=== PATIENT | male | born 1945 | race Caucasian/White ===

== ENCOUNTER 2019-01-17 10:14 | Emergency (ER) | payer MEDICARE, OTHER ==
[~2019-01-17] VITALS: Ht 175.3 cm; Wt 81.8 kg
[2019-01-17] MEDS ORDERED: LOSA50TA64 PO (10:32)
[2019-01-17] MEDS ORDERED: MORPHINE SULFATE 4 MG/ML SYRINGE IVP ONE (10:45)
[2019-01-17] MEDS ORDERED: PERTUSS(ACELL),DIPH,TET VAC/PF 0.5 ML VIAL IM ONE (10:45)
[2019-01-17] MEDS ORDERED: CeFAZolin 1 GM/DEXTROSE 50 ML IV ONE (10:45)
[2019-01-17] MEDS ORDERED: ONDANSETRON HCL 4 MG/2 ML VIAL IVP ONE (10:45)
[2019-01-17 11:16] LABS: BASOPHILS % (AUTO) 0.5 % (0.0-2.0); EOSINOPHILS % (AUTO) 0.4 % (1.0-6.0); HEMATOCRIT 43.1 % (41-53); HEMOGLOBIN 14.9 g/dL (13.5-17.5); LYMPHOCYTES % (AUTO) 13.6 % (22.0-44.0); MEAN CORPUSCULAR HEMOGLOBIN 31.1 pg (26.0-34.0); MEAN CORPUSCULAR HGB CONC 34.5 G/dL (31.0-37.0); MEAN CORPUSCULAR VOLUME 90 fL (80-100); MONOCYTES # (AUTO) 0.5 K/uL (0.1-1.0); MONOCYTES % (AUTO) 6.7 % (2.0-9.0); NEUTROPHILS # (AUTO) 5.6 K/uL (1.8-7.7); NEUTROPHILS % (AUTO) 78.8 % (40.0-70.0); PLATELET COUNT (AUTO) 185 K/uL (150-450); RED BLOOD CELL COUNT(AUTO) 4.78 MIL/uL (4.50-5.90); RED CELL DISTRIBUTION WIDTH 12.9 % (11.5-14.5)
[2019-01-17 11:26] LABS: ANION GAP 9 mmol/L (8-16); CALCIUM, TOTAL 8.8 mg/dL (8.8-10.5); CARBON DIOXIDE 26 mmol/L (22-29); CHLORIDE 106 mmol/L (98-107); CREATININE 1.05 mg/dL (0.60-1.30); GLOMERULAR FILTR. RATE CALC > 60 mL/min (>60); GLUCOSE,RANDOM 109 mg/dL (70-110); POTASSIUM 4.4 mmol/L (3.5-5.1); SODIUM SERUM 141 mmol/L (136-145); UREA NITROGEN, BLOOD 18 mg/dL (7-18)
[2019-01-17 11:30] LABS: PROTHROMBIN TIME 10.5 SEC (9.4-11.6)
[2019-01-17] MEDS ORDERED: LIDOCAINE 1% 10 ML VIAL INJ ONE (12:15)
[2019-01-17] MEDS ORDERED: GENTAMICIN 80 MG/NACL ISO-OSM 50 ML IV ONE (12:15)
[2019-01-17] MEDS ORDERED: HYDROCODONE/ACETAMINOPHEN 5-325 MG TABLET PO ONE (13:30)
[2019-01-17] MEDS ORDERED: BACITRACIN 0.9 GM PACKET OINTMENT TP ONE (13:30)
[2019-01-17] MEDS ORDERED: MORPHINE SULFATE 2 MG/ML SYRINGE IVP ONE (14:00)
[2019-01-17 14:54] VITALS: BP 139/75
== END 2019-01-17 15:06 | disposition home or self-care (01) ==
LOC: EMS 10:16
DX: S68.114A Complete traumatic metacarpophalangeal amputation of right ring finger, initial encounter (principal); I10 Essential (primary) hypertension; Z79.899 Other long term (current) drug therapy; W26.8XXA Contact with other sharp object(s), not elsewhere classified, initial encounter; Y93.89 Activity, other specified; Y92.89 Other specified places as the place of occurrence of the external cause; Y99.8 Other external cause status
CPT/HCPCS: 12002; 36415; 73140; 80048; 85025; 85610; 85730; 86850; 86900; 86901; 90471; 90715; 96365; 96367; 96375; 96376; 99284; J0690; J1580; J2270 ×2; J2405; J3490

== ENCOUNTER 2019-01-21 08:51 | Emergency (ER) | payer MEDICARE, OTHER ==
[~2019-01-21] VITALS: Ht 172.7 cm; Wt 81.8 kg
[~2019-01-21 08:51] MED LIST: LOSA50TA64 PO
[2019-01-21 08:56] VITALS: BP 138/95
== END 2019-01-21 09:38 | disposition home or self-care (01) ==
LOC: EMS 08:52
DX: S61.204A Unspecified open wound of right ring finger without damage to nail, initial encounter (principal); I10 Essential (primary) hypertension; Z79.899 Other long term (current) drug therapy; X58.XXXA Exposure to other specified factors, initial encounter; Y93.89 Activity, other specified; Y92.89 Other specified places as the place of occurrence of the external cause; Y99.8 Other external cause status

== ENCOUNTER 2019-01-25 13:59 | Emergency (ER) | payer MEDICARE, OTHER ==
[~2019-01-25] VITALS: Ht 177.8 cm; Wt 81.8 kg
[2019-01-25 14:23] VITALS: BP 110/65
[2019-01-25] MEDS ORDERED: BACITRACIN 0.9 GM PACKET OINTMENT TP ONE (15:30)
== END 2019-01-25 16:05 | disposition home or self-care (01) ==
LOC: EMS 14:02
DX: S61.214A Laceration without foreign body of right ring finger without damage to nail, initial encounter (principal); I10 Essential (primary) hypertension; Z79.899 Other long term (current) drug therapy; X58.XXXA Exposure to other specified factors, initial encounter; Y93.89 Activity, other specified; Y92.89 Other specified places as the place of occurrence of the external cause; Y99.8 Other external cause status

== ENCOUNTER 2023-12-04 16:54 | Inpatient (IN) | payer MEDICARE, MEDICAID ==
[~2023-12-04] VITALS: Ht 172.7 cm; Wt 81.3 kg
[~2023-12-04 16:54] MED LIST changes: +LOSA-382 PO; -LOSA50TA64 PO
[2023-12-04 17:55] LABS: BASOPHILS % (AUTO) 0.2 % (0.0-2.0); EOSINOPHILS % (AUTO) 0 % (1.0-6.0); HEMOGLOBIN 15.9 g/dL (13.5-17.5); LYMPHOCYTES # (AUTO) 0.6 K/uL (1.0-4.8); LYMPHOCYTES % (AUTO) 6.4 % (22.0-44.0); MEAN CORPUSCULAR HEMOGLOBIN 30.6 pg (26.0-34.0); MEAN CORPUSCULAR HGB CONC 33.7 G/dL (31.0-37.0); MEAN CORPUSCULAR VOLUME 91 fL (80-100); MONOCYTES % (AUTO) 9.8 % (2.0-9.0); NEUTROPHILS # (AUTO) 8.3 K/uL (1.8-7.7); NEUTROPHILS % (AUTO) 83.6 % (40.0-70.0); PLATELET COUNT (AUTO) 208 K/uL (150-450); RED BLOOD CELL COUNT(AUTO) 5.19 MIL/uL (4.50-5.90); WHITE BLOOD COUNT (AUTO) 9.9 K/uL (4.5-11.0)
[2023-12-04 18:06] LABS: CALCIUM, TOTAL 8.8 mg/dL (8.8-10.5); CREATININE 1.64 mg/dL (0.60-1.30); POTASSIUM 3.8 mmol/L (3.5-5.1)
[2023-12-04 18:13] LABS: TROPONIN I-HIGH SENSITIVITY 26 ng/L (<76)
[2023-12-04] MEDS: CEPHALEXIN MONOHYDRATE 500 MG CAPSULE PO ONE (19:45)
[2023-12-04 20:11] LABS: APPEARANCE,URINE CLEAR (CLEAR); BILIRUBIN,URINE NEGATIVE (NEGATIVE); COLOR,URINE LIGHT YELLOW (YELLOW); GLUCOSE, URINE (UA) NEGATIVE (NEGATIVE); KETONES,URINE NEGATIVE (NEGATIVE); LEUKOCYTE ESTERASE ,URINE NEGATIVE (NEGATIVE); NITRATE,URINE NEGATIVE (NEGATIVE); OCCULT BLOOD,URINE TRACE (NEGATIVE); PH,URINE 5.5 (5.0-8.0); PROTEIN,URINE NEGATIVE (NEGATIVE); UROBILINOGEN,URINE <=1.0 mg/dL (<=1.0)
[2023-12-04] MEDS ORDERED: ACETAMINOPHEN 325 MG TABLET PO PRN (20:15)
[2023-12-04 20:30] LABS: BACTERIA,URINE Few /HPF (None Seen); MUCUS,URINE Rare LPF (None Seen); RBC,URINE 0-2 /HPF (0-2); SQUAMOUS EPITHELIAL CELL,UR Few /LPF (None Seen); WBC,URINE 0-2 /HPF (0-5)
[2023-12-04] MEDS: ATORVASTATIN CALCIUM 40 MG TABLET PO ONE (20:47)
[2023-12-04] MEDS: DEXAMETHASONE SOD PHOS 4 MG/ML VIAL IVP ONE (20:47)
[2023-12-04 20:49] LABS: CREATININE,URINE RANDOM 96.4 mg/dL (30.0-125.0)
[2023-12-04 22:30] VITALS: BP 145/86; PULSE 81; RESP 18; TEMP 98; O2SAT 93
[2023-12-04] MEDS: HEPARIN SODIUM,PORCINE 5,000 UNITS/ML VIAL SQ SCH (23:47)
[2023-12-04] MEDS: TAMSULOSIN HCL 0.4 MG CAPSULE PO SCH (23:47)
[2023-12-05] MEDS: DEXAMETHASONE SOD PHOS 10 MG/ML VIAL IVP ONE (03:06)
[2023-12-05] MEDS: FAMOTIDINE 20 MG/2 ML VIAL IVP SCH (03:06)
[2023-12-05 04:14] VITALS: BP 144/80; PULSE 78; RESP 18; TEMP 98.2; O2SAT 94
[2023-12-05] MEDS ORDERED: INFLUENZA VIRUS VACCINE TVS (6MO+) 2024-25/PF 45 MCG/0.5 ML SYRINGE IM. ONE (05:00)
[2023-12-05] MEDS: DEXAMETHASONE SOD PHOS 4 MG/ML VIAL IVP SCH (05:43)
[2023-12-05] MEDS: CLOPIDOGREL BISULFATE 75 MG TABLET PO SCH (08:06)
[2023-12-05] MEDS: ASPIRIN 81 MG CHEWABLE TABLET PO SCH (08:07)
[2023-12-05] MEDS: ATORVASTATIN CALCIUM 40 MG TABLET PO SCH (08:14)
[2023-12-05 08:23] LABS: BASOPHILS % (AUTO) 0.1 % (0.0-2.0); EOSINOPHILS % (AUTO) 0 % (1.0-6.0); HEMATOCRIT 45.8 % (41-53); HEMOGLOBIN 15.6 g/dL (13.5-17.5); LYMPHOCYTES # (AUTO) 0.5 K/uL (1.0-4.8); LYMPHOCYTES % (AUTO) 7.1 % (22.0-44.0); MEAN CORPUSCULAR HEMOGLOBIN 30.7 pg (26.0-34.0); MEAN CORPUSCULAR VOLUME 90 fL (80-100); MONOCYTES # (AUTO) 0.1 K/uL (0.1-1.0); MONOCYTES % (AUTO) 1.5 % (2.0-9.0); PLATELET COUNT (AUTO) 198 K/uL (150-450); RED BLOOD CELL COUNT(AUTO) 5.07 MIL/uL (4.50-5.90); WHITE BLOOD COUNT (AUTO) 6.6 K/uL (4.5-11.0)
[2023-12-05 08:25] LABS: ANION GAP 10 mmol/L (8-16); CALCIUM, TOTAL 9.2 mg/dL (8.8-10.5); CARBON DIOXIDE 26 mmol/L (22-29); CHLORIDE 99 mmol/L (98-107); GLOMERULAR FILTR. RATE CALC > 60 mL/min (>60); GLUCOSE,RANDOM 146 mg/dL (70-110); POTASSIUM 4.1 mmol/L (3.5-5.1); SODIUM SERUM 135 mmol/L (136-145); UREA NITROGEN, BLOOD 22 mg/dL (7-18)
[2023-12-05 08:26] VITALS: BP 143/78; PULSE 73; RESP 19; TEMP 98; O2SAT 95
[2023-12-05 08:38] LABS: NEUTROPHILS % (AUTO) 91.3 % (40.0-70.0)
[2023-12-05 11:22] VITALS: BP 140/78; PULSE 90; RESP 19; TEMP 98.2; O2SAT 94
[2023-12-05 15:26] VITALS: BP 144/84; PULSE 78; RESP 18; TEMP 97.8; O2SAT 96
[2023-12-05 20:07] VITALS: BP 148/92; PULSE 81; RESP 18; TEMP 97.8; O2SAT 96
[2023-12-05 23:36] VITALS: BP 145/97; PULSE 79; RESP 18; TEMP 97.8; O2SAT 95
[2023-12-06 04:53] VITALS: BP 145/81; PULSE 74; RESP 18; TEMP 97.7; O2SAT 95
[2023-12-06 07:44] VITALS: BP 145/80; PULSE 69; RESP 18; TEMP 98; O2SAT 95
[2023-12-06 11:11] VITALS: BP 143/77; PULSE 90; RESP 18; TEMP 98.1; O2SAT 98
[2023-12-06 16:00] VITALS: BP 149/88; PULSE 72; RESP 18; TEMP 97.8; O2SAT 97
[2023-12-06] MEDS: DEXAMETHASONE SOD PHOS 4 MG/ML VIAL IVP SCH (18:21)
[2023-12-06 19:58] VITALS: BP 151/80; PULSE 84; RESP 19; TEMP 97.9; O2SAT 96
[2023-12-07] VITALS (8 sets, daily range): BP systolic 134–172; BP diastolic 77–100; PULSE 59–78; RESP 17–18; TEMP 97.6–98.4; O2SAT 93–98
[2023-12-07 08:07] LABS: EOSINOPHILS % (AUTO) 0 % (1.0-6.0); HEMATOCRIT 46.3 % (41-53); HEMOGLOBIN 15.4 g/dL (13.5-17.5); LYMPHOCYTES # (AUTO) 0.7 K/uL (1.0-4.8); LYMPHOCYTES % (AUTO) 5.1 % (22.0-44.0); MEAN CORPUSCULAR HEMOGLOBIN 30.5 pg (26.0-34.0); MEAN CORPUSCULAR HGB CONC 33.3 G/dL (31.0-37.0); MEAN CORPUSCULAR VOLUME 91 fL (80-100); MONOCYTES # (AUTO) 0.7 K/uL (0.1-1.0); PLATELET COUNT (AUTO) 219 K/uL (150-450); RED BLOOD CELL COUNT(AUTO) 5.07 MIL/uL (4.50-5.90); RED CELL DISTRIBUTION WIDTH 13.2 % (11.5-14.5); WHITE BLOOD COUNT (AUTO) 13.4 K/uL (4.5-11.0)
[2023-12-07 08:17] LABS: NEUTROPHILS % (AUTO) 89.9 % (40.0-70.0); RBC MORPHOLOGY COMMENT NORMAL RBC MORPH
[2023-12-07 08:34] LABS: ALANINE AMINOTRANSFERASE 22 U/L (12-78); ALBUMIN 3.3 g/dL (3.4-5.0); ALKALINE PHOSPHATASE 90 U/L (46-116); ANION GAP 9 mmol/L (8-16); ASPARTATE AMINOTRANSFERASE 18 U/L (15-37); BILIRUBIN,TOTAL 0.4 mg/dL (0.1-1.0); CALCIUM, TOTAL 8.5 mg/dL (8.8-10.5); CARBON DIOXIDE 25 mmol/L (22-29); CHLORIDE 101 mmol/L (98-107); CREATININE 0.83 mg/dL (0.60-1.30); GLOMERULAR FILTR. RATE CALC > 60 mL/min (>60); GLUCOSE,RANDOM 133 mg/dL (70-110); POTASSIUM 4.3 mmol/L (3.5-5.1); SODIUM SERUM 135 mmol/L (136-145); TOTAL PROTEIN, SERUM 7.1 g/dL (6.4-8.2); UREA NITROGEN, BLOOD 32 mg/dL (7-18)
[2023-12-07 10:03] LABS: CHOL/HDL RATIO 3.3 (4.2-7.3); CHOLESTEROL 172 mg/dL (131-200); HDL CHOLESTEROL 52 mg/dL (40-60); LDL CHOL (CALC.) 103 mg/dL (0-130); TRIGLYCERIDES 84 mg/dL (15-150)
[2023-12-07] MEDS: AmLODIPine BESYLATE 5 MG TABLET PO SCH (10:47)
[2023-12-07] MEDS: TAMSULOSIN HCL 0.4 MG CAPSULE PO ONE (10:47)
[2023-12-07] MEDS: ONDANSETRON HCL 4 MG/2 ML VIAL IVP PRN (19:02)
[2023-12-07] MEDS: TAMSULOSIN HCL 0.4 MG CAPSULE PO SCH (21:04)
[2023-12-08 00:03] VITALS: BP 143/76; PULSE 67; RESP 18; TEMP 98.3; O2SAT 96
[2023-12-08 05:36] VITALS: BP 135/82; PULSE 73; RESP 18; TEMP 98; O2SAT 98
[2023-12-08 07:16] LABS: ANION GAP 8 mmol/L (8-16); CALCIUM, TOTAL 8.8 mg/dL (8.8-10.5); CARBON DIOXIDE 26 mmol/L (22-29); CHLORIDE 99 mmol/L (98-107); CREATININE 0.98 mg/dL (0.60-1.30); GLOMERULAR FILTR. RATE CALC > 60 mL/min (>60); GLUCOSE,RANDOM 138 mg/dL (70-110); POTASSIUM 4.4 mmol/L (3.5-5.1); SODIUM SERUM 133 mmol/L (136-145); UREA NITROGEN, BLOOD 23 mg/dL (7-18)
[2023-12-08 11:34] VITALS: BP 140/82; PULSE 69; RESP 18; TEMP 98; O2SAT 98
[2023-12-08 16:27] VITALS: BP 145/75; PULSE 72; RESP 18; TEMP 97.7; O2SAT 96
[2023-12-08 17:53] VITALS: BP 142/87; PULSE 70; RESP 20; TEMP 97.8; O2SAT 98
[2023-12-08 21:15] VITALS: BP 139/77; PULSE 65; RESP 20; TEMP 97.9; O2SAT 96
[2023-12-09 05:35] VITALS: BP 123/69; PULSE 63; RESP 19; TEMP 98; O2SAT 97
[2023-12-09 07:44] VITALS: BP 139/77; PULSE 66; RESP 19; TEMP 97.7; O2SAT 95
[2023-12-09] MEDS ORDERED: AMLO-257 PO (12:04)
[2023-12-09] MEDS ORDERED: CLOP75TA60 PO (12:04)
[2023-12-09] MEDS ORDERED: ASPI-1450 PO (12:04)
[2023-12-09] MEDS ORDERED: ATOR40TA71 PO (12:04)
[2023-12-09] MEDS ORDERED: DEXA1 PO (12:04)
[2023-12-09 12:43] LABS: BASOPHILS % (AUTO) 0.1 % (0.0-2.0); EOSINOPHILS % (AUTO) 0 % (1.0-6.0); HEMOGLOBIN 17.2 g/dL (13.5-17.5); LYMPHOCYTES # (AUTO) 0.8 K/uL (1.0-4.8); LYMPHOCYTES % (AUTO) 7.3 % (22.0-44.0); MEAN CORPUSCULAR HEMOGLOBIN 30.4 pg (26.0-34.0); MEAN CORPUSCULAR HGB CONC 33.1 G/dL (31.0-37.0); MEAN CORPUSCULAR VOLUME 92 fL (80-100); MONOCYTES # (AUTO) 0.7 K/uL (0.1-1.0); MONOCYTES % (AUTO) 6.6 % (2.0-9.0); NEUTROPHILS # (AUTO) 9.3 K/uL (1.8-7.7); PLATELET COUNT (AUTO) 235 K/uL (150-450); RED BLOOD CELL COUNT(AUTO) 5.66 MIL/uL (4.50-5.90); RED CELL DISTRIBUTION WIDTH 13.3 % (11.5-14.5); WHITE BLOOD COUNT (AUTO) 10.8 K/uL (4.5-11.0)
[2023-12-09 12:52] LABS: ANION GAP 6 mmol/L (8-16); CALCIUM, TOTAL 8.6 mg/dL (8.8-10.5); CARBON DIOXIDE 29 mmol/L (22-29); CHLORIDE 97 mmol/L (98-107); GLOMERULAR FILTR. RATE CALC > 60 mL/min (>60); GLUCOSE,RANDOM 163 mg/dL (70-110); POTASSIUM 4.7 mmol/L (3.5-5.1); SODIUM SERUM 132 mmol/L (136-145); UREA NITROGEN, BLOOD 30 mg/dL (7-18)
[2023-12-09 12:55] LABS: ALANINE AMINOTRANSFERASE 29 U/L (12-78); ALBUMIN 3.4 g/dL (3.4-5.0); ALKALINE PHOSPHATASE 94 U/L (46-116); ASPARTATE AMINOTRANSFERASE 19 U/L (15-37); BILIRUBIN,TOTAL 0.5 mg/dL (0.1-1.0); TOTAL PROTEIN, SERUM 7.7 g/dL (6.4-8.2)
[2023-12-09] MEDS: DEXAMETHASONE SOD PHOS 4 MG/ML VIAL IVP ONE (14:24)
[2023-12-09] MEDS: DEXAMETHASONE SOD PHOS 4 MG/ML VIAL IVP SCH (18:06)
[2023-12-09 19:57] VITALS: BP 145/80; PULSE 80; RESP 20; TEMP 97.7; O2SAT 94
[2023-12-10 04:22] VITALS: BP 129/84; PULSE 72; RESP 18; TEMP 97.7; O2SAT 97
[2023-12-10 07:09] LABS: EOSINOPHILS % (AUTO) 0 % (1.0-6.0); HEMATOCRIT 47.2 % (41-53); LYMPHOCYTES # (AUTO) 1.3 K/uL (1.0-4.8); LYMPHOCYTES % (AUTO) 9.8 % (22.0-44.0); MEAN CORPUSCULAR HEMOGLOBIN 30.7 pg (26.0-34.0); MEAN CORPUSCULAR HGB CONC 33.8 G/dL (31.0-37.0); MEAN CORPUSCULAR VOLUME 91 fL (80-100); MONOCYTES # (AUTO) 0.9 K/uL (0.1-1.0); NEUTROPHILS # (AUTO) 10.7 K/uL (1.8-7.7); NEUTROPHILS % (AUTO) 83.2 % (40.0-70.0); PLATELET COUNT (AUTO) 219 K/uL (150-450); RED BLOOD CELL COUNT(AUTO) 5.21 MIL/uL (4.50-5.90); WHITE BLOOD COUNT (AUTO) 12.9 K/uL (4.5-11.0)
[2023-12-10 07:27] LABS: ALANINE AMINOTRANSFERASE 24 U/L (12-78); ALKALINE PHOSPHATASE 78 U/L (46-116); ANION GAP 6 mmol/L (8-16); ASPARTATE AMINOTRANSFERASE 19 U/L (15-37); BILIRUBIN,TOTAL 0.5 mg/dL (0.1-1.0); CALCIUM, TOTAL 8.3 mg/dL (8.8-10.5); CARBON DIOXIDE 27 mmol/L (22-29); CHLORIDE 99 mmol/L (98-107); CREATININE 0.95 mg/dL (0.60-1.30); GLOMERULAR FILTR. RATE CALC > 60 mL/min (>60); GLUCOSE,RANDOM 130 mg/dL (70-110); POTASSIUM 4.3 mmol/L (3.5-5.1); SODIUM SERUM 132 mmol/L (136-145); TOTAL PROTEIN, SERUM 6.4 g/dL (6.4-8.2); UREA NITROGEN, BLOOD 28 mg/dL (7-18)
[2023-12-10 07:37] VITALS: BP 141/81; PULSE 63; RESP 18; TEMP 98.3; O2SAT 95
[2023-12-10] MEDS: DEXAMETHASONE SOD PHOS 4 MG/ML VIAL IVP SCH (08:08)
[2023-12-10 13:28] LABS: TROPONIN I-HIGH SENSITIVITY 13 ng/L (<76)
[2023-12-10 14:08] LABS: TROPONIN I-HIGH SENSITIVITY 13 ng/L (<76)
[2023-12-10 15:54] VITALS: BP 138/88; PULSE 93; RESP 20; TEMP 98.5; O2SAT 97
[2023-12-10] MEDS: CefTRIAXone 1 GM/DEXTROSE 50 ML IV SCH (16:27)
[2023-12-10] MEDS ORDERED: SODIUM CHLORIDE 0.9% 500 ML IV ONE (16:35)
[2023-12-10 19:36] VITALS: BP 123/69; PULSE 76; RESP 18; TEMP 97.7; O2SAT 95
[2023-12-11 04:36] VITALS: BP 121/75; PULSE 68; RESP 18; TEMP 97.6; O2SAT 96
[2023-12-11 08:21] VITALS: BP 134/80; PULSE 66; RESP 19; TEMP 98.3; O2SAT 97
[2023-12-11] MEDS ORDERED: CEFD300C18 PO (14:53)
[2023-12-11 16:00] VITALS: BP 122/72; PULSE 94; RESP 18; TEMP 97.5; O2SAT 97
[2023-12-11] MEDS ORDERED: TAMS0.4C94 PO (16:03)
[2023-12-11] MEDS ORDERED: DEXAMETHASONE 2 MG TABLET PO SCH (21:00)
[2023-12-12] MEDS ORDERED: ASPIRIN 81 MG CHEWABLE TABLET PO SCH (08:00)
[2023-12-12] MEDS ORDERED: AmLODIPine BESYLATE 5 MG TABLET PO SCH (09:00)
[2023-12-12] MEDS ORDERED: LOSARTAN POTASSIUM 50 MG TABLET PO SCH (09:00)
[2023-12-12] MEDS ORDERED: ATORVASTATIN CALCIUM 40 MG TABLET PO SCH (09:00)
[2023-12-12] MEDS ORDERED: CLOPIDOGREL BISULFATE 75 MG TABLET PO SCH (09:00)
== END 2023-12-11 19:12 | DRG 64 ==
LOC: EMS 16:54 → EDH 20:14 → 5S 22:23 → 4E 12-08 17:32
PROVIDERS: ADMIT Internal Medicine; ATTEND Internal Medicine
DX: I63.541 Cerebral infarction due to unspecified occlusion or stenosis of right cerebellar artery (principal); G93.6 Cerebral edema; N17.0 Acute kidney failure with tubular necrosis; J18.9 Pneumonia, unspecified organism; I10 Essential (primary) hypertension; R33.8 Other retention of urine; N40.1 Benign prostatic hyperplasia with lower urinary tract symptoms; T38.0X5A Adverse effect of glucocorticoids and synthetic analogues, initial encounter; D72.829 Elevated white blood cell count, unspecified; Z79.899 Other long term (current) drug therapy; Y92.89 Other specified places as the place of occurrence of the external cause
CPT/HCPCS: 51702; 70450; 70551; 71045; 74177; 80048; 80053; 80061; 81001; 82570; 83036; 83735; 84300; 84484; 85025; 93005; 93306; 93880; 97110; 97112; 97116; 97163; 97165; 97530; 97535; 99285; G0378; J0696; J1100; J1644; J2405; J3490; J7040; J8540; 36415-L1; 36415-TC